=== PATIENT | female | born 1935 | race Caucasian/White ===

== ENCOUNTER 2019-04-10 21:37 | Inpatient (IN) | payer MEDICARE, OTHER ==
[~2019-04-10] VITALS: Ht 165.1 cm; Wt 44.4 kg
--- NOTE | 2019-04-10 21:50 | NUR ---
EKG DONE ON ARRIVAL.
--- NOTE | 2019-04-10 21:51 | NUR ---
Pt arrives via [facility] from home for pt has been sick since Tuesday with diarrhea. Today pt reports feeling weak and dizzy. Pt's lisinopril was increased from 5mg to 10mg on . [facility] reports highes BP of 88/48. 18g to right AC placed. Pt has NS bolus running from [facility]. Pt alert and oriented. Pt very hard of hearing. Pt in gown and placed on full monitors. EKG complete. Pt BP 70/37. Pt daughter, Valencia, at bedside. Pt took percocet at 1800.
[2019-04-10] MEDS ORDERED: ALPR3TAB PO (21:58)
[2019-04-10] MEDS ORDERED: SUMA50TA4 PO (21:58)
[2019-04-10] MEDS ORDERED: OXYC-307 PO (21:58)
[2019-04-10] MEDS ORDERED: LISI10TA2 PO (21:58)
[2019-04-10] MEDS ORDERED: TIZA2CAP PO (21:58)
[2019-04-10 22:25] LABS: RAPID INFLUENZA A Negative (Negative); RAPID INFLUENZA B Negative (Negative)
[2019-04-10] MEDS ORDERED: SODIUM CHLORIDE 0.9% 1,000ML IVBOLUS ONE ×2 (22:30→23:00)
[2019-04-10] MEDS ORDERED: AZITHROMYCIN 500 MG in SODIUM CHLORIDE 0.9% 250 ML IV ONE (22:30)
[2019-04-10] MEDS ORDERED: CEFTRIAXONE PMX 1GM/50ML 50 ML IVPB ONE (22:30)
--- NOTE | 2019-04-10 22:35 | NUR ---
Attempted to walk pt to restroom. Pt reports feeling too weak to walk. Pt return to bed.
[2019-04-10 22:49] LABS: MEAN CORPUSCULAR HEMOGLOBIN 32.4 pg (27.0-34.8); MEAN CORPUSCULAR HGB CONC 33.1 g/dL (32.4-35.8); MEAN CORPUSCULAR VOLUME 97.8 fL (80-100); MEAN PLATELET VOLUME 8.3 fL (7.4-10.4); PLATELET COUNT 281 x10^3/uL (130-400); RED BLOOD COUNT 3.88 x10^6/uL (3.82-5.3); RED CELL DISTRIBUTION WIDTH 13.6 % (9.6-15.2)
[2019-04-10 22:58] LABS: ALANINE AMINOTRANSFERASE 16 U/L (12-78); ALBUMIN 2.5 g/dL (3.4-5.0); ANION GAP 7 mmol/L (5-15); CALCIUM 8.3 mg/dL (8.5-10.1); CHLORIDE 107 mmol/L (98-107); CREATININE 1.44 mg/dL (0.55-1.02)
[2019-04-10 23:02] LABS: ALKALINE PHOSPHATASE 63 U/L (45-117); BILIRUBIN,TOTAL 1.2 mg/dL (0.2-1.0); TOTAL PROTEIN 6.2 g/dL (6.4-8.2); TROPONIN I < 0.015 ng/mL (0.000-0.045)
[2019-04-10 23:17] LABS: MD YES
[2019-04-10] MEDS ORDERED: CEFTRIAXONE PMX 1GM/50ML 50 ML ONE (23:20)
[2019-04-10 23:22] LABS: BAND#(MANUAL) 0.23 x10^3/uL; BANDS%(MANUAL) 1 % (0-7); LYMPH#(MANUAL) 0.91 x10^3/uL (1-3.4); LYMPHS% (MANUAL) 4 % (22-44); MONOS#(MANUAL) 2.04 x10^3/uL (0.3-2.7); MONOS% (MANUAL) 9 % (2-9); SEG#(MANUAL) 19.52 x10^3/uL (1.8-6.8); SEGS% (MANUAL) 86 % (42-75)
[2019-04-10 23:23] LABS: <PLATELET ESTIMATE> ADEQUATE; <PLT MORPHOLOGY> NORMAL PLT MORPH; <RBC MORPHOLOGY> NORMAL
--- NOTE | 2019-04-10 23:25 | NUR ---
Urine collected via sterile straight cath and sent to lab. NS bolus and rocephin started.
[2019-04-10 23:34] LABS: MICROSCOPIC INDICATED
[2019-04-10 23:42] LABS: CULTURE INDICATED? NO
[2019-04-11] VITALS (15 sets, daily range): BP systolic 75–120; BP diastolic 40–59
--- NOTE | 2019-04-11 00:08 | NUR ---
Second PIV antibiotic started. NS bolus continues. Pt BP 101/46. Pt color has improved. Pt given oral swabs. Pt on 1.5L NC.
[2019-04-11] MEDS ORDERED: ONDANSETRON ODT 4 MG PO PRN (00:30)
[2019-04-11] MEDS ORDERED: DIPHENHYDRAMINE 25 MG CAPSULE PO PRN (00:30)
[2019-04-11] MEDS ORDERED: LACTATED RINGERS 1,000 ML IV SCH (00:30)
[2019-04-11] MEDS ORDERED: LIDODERM 5% PATCH TD PRN (00:30)
[2019-04-11] MEDS: CEFTRIAXONE PMX 1GM/50ML 50 ML IV SCH ×2 (00:30→12:48)
[2019-04-11] MEDS ORDERED: DOCUSATE 100 MG CAPSULE PO PRN (00:30)
--- NOTE | 2019-04-11 01:03 | NUR ---
Report given to SUNG Dooley Pt alert and interactive at time of admit.
[2019-04-11] MEDS: HEPARIN 5,000 UNITS/ML, 1ML SQ SCH ×3 (01:26→17:04)
[2019-04-11] MEDS ORDERED: SODIUM CHLORIDE 0.9% 1,000ML IVBOLUS ONE (05:30)
[2019-04-11 06:15] LABS: MEAN CORPUSCULAR HEMOGLOBIN 32.5 pg (27.0-34.8); MEAN CORPUSCULAR VOLUME 98.3 fL (80-100); MEAN PLATELET VOLUME 7.8 fL (7.4-10.4); PLATELET COUNT 275 x10^3/uL (130-400); RED BLOOD COUNT 3.91 x10^6/uL (3.82-5.3); RED CELL DISTRIBUTION WIDTH 13.7 % (9.6-15.2)
[2019-04-11 06:24] LABS: ANION GAP 6 mmol/L (5-15); CALCIUM 7.6 mg/dL (8.5-10.1); CHLORIDE 113 mmol/L (98-107)
[2019-04-11 06:26] LABS: CREATININE 1.01 mg/dL (0.55-1.02)
[2019-04-11 06:57] LABS: MD YES
[2019-04-11 07:00] LABS: BAND#(MANUAL) 0.25 x10^3/uL; BANDS%(MANUAL) 1 % (0-7); LYMPH#(MANUAL) 1.49 x10^3/uL (1-3.4); LYMPHS% (MANUAL) 6 % (22-44); MONOS#(MANUAL) 1.99 x10^3/uL (0.3-2.7); MONOS% (MANUAL) 8 % (2-9); SEG#(MANUAL) 21.17 x10^3/uL (1.8-6.8); SEGS% (MANUAL) 85 % (42-75)
[2019-04-11 07:01] LABS: <PLATELET ESTIMATE> ADEQUATE; <PLT MORPHOLOGY> NORMAL PLT MORPH; <RBC MORPHOLOGY> NORMAL
[2019-04-11] MEDS: ACETAMINOPHEN 325 MG TABLET PO PRN ×2 (08:49→17:44)
[2019-04-11] MEDS ORDERED: SUMA100T4 PO (19:37)
[2019-04-11] MEDS ORDERED: AZITHROMYCIN 500 MG in SODIUM CHLORIDE 0.9% 250 ML IV SCH (23:30)
[2019-04-12] MEDS ORDERED: LACTATED RINGERS 1,000 ML IV SCH (00:30)
[2019-04-12] MEDS: CEFTRIAXONE PMX 1GM/50ML 50 ML IV SCH ×2 (00:45→12:32)
[2019-04-12] MEDS: HEPARIN 5,000 UNITS/ML, 1ML SQ SCH ×3 (02:41→16:52)
[2019-04-12 03:26] VITALS: BP 136/74
[2019-04-12 05:44] LABS: MEAN CORPUSCULAR HEMOGLOBIN 32.2 pg (27.0-34.8); MEAN CORPUSCULAR HGB CONC 33.4 g/dL (32.4-35.8); MEAN CORPUSCULAR VOLUME 96.5 fL (80-100); MEAN PLATELET VOLUME 8.1 fL (7.4-10.4); PLATELET COUNT 298 x10^3/uL (130-400); RED BLOOD COUNT 3.51 x10^6/uL (3.82-5.3); RED CELL DISTRIBUTION WIDTH 13.8 % (9.6-15.2)
[2019-04-12 05:51] LABS: ANION GAP 7 mmol/L (5-15); CALCIUM 8.2 mg/dL (8.5-10.1); CHLORIDE 112 mmol/L (98-107); CREATININE 0.57 mg/dL (0.55-1.02)
[2019-04-12 06:00] LABS: BASOPHILS # (AUTO) 0.08 x10^3/uL (0-0.1); BASOPHILS % (AUTO) 0 % (0-1); EOSINOPHILS # (AUTO) 0.03 x10^3/uL (0-0.4); EOSINOPHILS % (AUTO) 0 % (1-7); LYMPHOCYTES # (AUTO) 1.02 x10^3/uL (1-3.4); LYMPHOCYTES % (AUTO) 5 % (22-44); MD SCAN; MONOCYTES # (AUTO) 1.06 x10^3/uL (0.2-0.8); MONOCYTES % (AUTO) 5 % (2-9); NEUTROPHILS # (AUTO) 18.98 x10^3/uL (1.8-6.8); NEUTROPHILS % (AUTO) 90 % (42-75)
[2019-04-12 08:10] VITALS: BP 157/61
[2019-04-12] MEDS: DOXYCYCLINE 100 MG in DEXTROSE 5% 250 ML IV SCH (12:32)
[2019-04-12 15:50] VITALS: BP 152/61
[2019-04-12 19:28] VITALS: BP 148/73
[2019-04-12] MEDS: OXYcodone/APAP 10/325MG TABLET PO PRN (20:26)
[2019-04-13] MEDS: DOXYCYCLINE 100 MG in DEXTROSE 5% 250 ML IV SCH ×3 (00:23→23:41)
[2019-04-13 01:30] VITALS: BP 147/75
[2019-04-13] MEDS: CEFTRIAXONE PMX 1GM/50ML 50 ML IV SCH ×2 (02:09→15:41)
[2019-04-13] MEDS: HEPARIN 5,000 UNITS/ML, 1ML SQ SCH ×3 (02:26→18:52)
[2019-04-13 04:44] LABS: MEAN CORPUSCULAR HGB CONC 32.6 g/dL (32.4-35.8); MEAN CORPUSCULAR VOLUME 98.1 fL (80-100); MEAN PLATELET VOLUME 7.8 fL (7.4-10.4); PLATELET COUNT 338 x10^3/uL (130-400); RED BLOOD COUNT 3.48 x10^6/uL (3.82-5.3)
[2019-04-13 04:55] LABS: CHLORIDE 109 mmol/L (98-107)
[2019-04-13 05:00] LABS: ANION GAP 5 mmol/L (5-15); CALCIUM 8.4 mg/dL (8.5-10.1); CREATININE 0.54 mg/dL (0.55-1.02)
[2019-04-13 07:25] VITALS: BP 174/67
[2019-04-13 07:47] LABS: BASOPHILS # (AUTO) 0.13 x10^3/uL (0-0.1); BASOPHILS % (AUTO) 1 % (0-1); EOSINOPHILS # (AUTO) 0.05 x10^3/uL (0-0.4); EOSINOPHILS % (AUTO) 0 % (1-7); LYMPHOCYTES # (AUTO) 1.18 x10^3/uL (1-3.4); LYMPHOCYTES % (AUTO) 7 % (22-44); MD SCAN; MONOCYTES # (AUTO) 1.05 x10^3/uL (0.2-0.8); MONOCYTES % (AUTO) 6 % (2-9); NEUTROPHILS # (AUTO) 15.82 x10^3/uL (1.8-6.8); NEUTROPHILS % (AUTO) 87 % (42-75)
[2019-04-13] MEDS: OXYcodone/APAP 10/325MG TABLET PO PRN ×2 (10:47→23:48)
[2019-04-13 12:46] VITALS: BP 138/66
[2019-04-13 19:46] VITALS: BP 168/67
[2019-04-14] MEDS: CEFTRIAXONE PMX 1GM/50ML 50 ML IV SCH ×2 (01:01→14:29)
[2019-04-14 01:06] VITALS: BP 162/65
[2019-04-14] MEDS: HEPARIN 5,000 UNITS/ML, 1ML SQ SCH ×3 (01:55→23:55)
[2019-04-14 05:54] LABS: ANION GAP 4 mmol/L (5-15); CALCIUM 8.4 mg/dL (8.5-10.1); CHLORIDE 109 mmol/L (98-107); CREATININE 0.46 mg/dL (0.55-1.02)
[2019-04-14 06:06] LABS: BASOPHILS # (AUTO) 0.36 x10^3/uL (0-0.1); BASOPHILS % (AUTO) 3 % (0-1); EOSINOPHILS # (AUTO) 0.15 x10^3/uL (0-0.4); EOSINOPHILS % (AUTO) 1 % (1-7); LYMPHOCYTES % (AUTO) 12 % (22-44); MD NO; MEAN CORPUSCULAR HEMOGLOBIN 31.8 pg (27.0-34.8); MEAN CORPUSCULAR HGB CONC 33.1 g/dL (32.4-35.8); MEAN PLATELET VOLUME 8.2 fL (7.4-10.4); MONOCYTES # (AUTO) 1.02 x10^3/uL (0.2-0.8); MONOCYTES % (AUTO) 8 % (2-9); NEUTROPHILS # (AUTO) 9.97 x10^3/uL (1.8-6.8); NEUTROPHILS % (AUTO) 77 % (42-75); PLATELET COUNT 333 x10^3/uL (130-400); RED CELL DISTRIBUTION WIDTH 13.3 % (9.6-15.2)
[2019-04-14 07:30] VITALS: BP 136/64
[2019-04-14] MEDS: DOXYCYCLINE 100 MG in DEXTROSE 5% 250 ML IV SCH ×2 (15:08→23:54)
[2019-04-14 16:01] VITALS: BP 149/55
[2019-04-14 19:05] VITALS: BP 196/70
[2019-04-14 19:50] VITALS: BP 184/83
[2019-04-14] MEDS ORDERED: hydrALAzine 20 MG/ML, 1ML IV PRN (20:30)
[2019-04-14] MEDS ORDERED: hydrALAzine 20 MG/ML, 1ML IV ONE (23:00)
[2019-04-14] MEDS: OXYcodone/APAP 10/325MG TABLET PO PRN (23:52)
[2019-04-15] VITALS (8 sets, daily range): BP systolic 137–174; BP diastolic 58–82
[2019-04-15 00:07] LABS: TROPONIN I < 0.015 ng/mL (0.000-0.045)
[2019-04-15] MEDS ORDERED: NITROGLYCERIN 0.4 MG BOTTLE (25 TABS) SL ONE (00:30)
[2019-04-15] MEDS: CEFTRIAXONE PMX 1GM/50ML 50 ML IV SCH ×2 (02:19→14:15)
[2019-04-15] MEDS ORDERED: hydrALAzine 20 MG/ML, 1ML IV PRN (02:30)
[2019-04-15 06:04] LABS: ANION GAP 8 mmol/L (5-15); CALCIUM 8.6 mg/dL (8.5-10.1); CHLORIDE 106 mmol/L (98-107); CREATININE 0.52 mg/dL (0.55-1.02)
[2019-04-15 06:11] LABS: BASOPHILS # (AUTO) 0.03 x10^3/uL (0-0.1); BASOPHILS % (AUTO) 0 % (0-1); EOSINOPHILS # (AUTO) 0.15 x10^3/uL (0-0.4); EOSINOPHILS % (AUTO) 1 % (1-7); LYMPHOCYTES % (AUTO) 12 % (22-44); MD NO; MEAN CORPUSCULAR HEMOGLOBIN 31.6 pg (27.0-34.8); MEAN CORPUSCULAR HGB CONC 32.6 g/dL (32.4-35.8); MEAN PLATELET VOLUME 7.7 fL (7.4-10.4); MONOCYTES % (AUTO) 8 % (2-9); NEUTROPHILS # (AUTO) 10.17 x10^3/uL (1.8-6.8); NEUTROPHILS % (AUTO) 79 % (42-75); PLATELET COUNT 466 x10^3/uL (130-400); RED BLOOD COUNT 3.77 x10^6/uL (3.82-5.3); RED CELL DISTRIBUTION WIDTH 13.5 % (9.6-15.2)
[2019-04-15] MEDS: HEPARIN 5,000 UNITS/ML, 1ML SQ SCH ×3 (07:30→23:51)
[2019-04-15] MEDS: DOXYCYCLINE 100 MG in DEXTROSE 5% 250 ML IV SCH ×2 (11:43→23:51)
[2019-04-15] MEDS: OXYcodone/APAP 10/325MG TABLET PO PRN (12:36)
[2019-04-15 13:41] LABS: TROPONIN I 0.044 ng/mL (0.000-0.045)
[2019-04-15 18:02] LABS: TROPONIN I 0.042 ng/mL (0.000-0.045)
[2019-04-16] MEDS: OXYcodone/APAP 10/325MG TABLET PO PRN ×3 (00:01→21:32)
[2019-04-16 00:03] VITALS: BP 172/70
[2019-04-16] MEDS: CEFTRIAXONE PMX 1GM/50ML 50 ML IV SCH ×2 (02:04→14:59)
[2019-04-16 04:29] LABS: BASOPHILS # (AUTO) 0.04 x10^3/uL (0-0.1); BASOPHILS % (AUTO) 0 % (0-1); EOSINOPHILS # (AUTO) 0.18 x10^3/uL (0-0.4); EOSINOPHILS % (AUTO) 1 % (1-7); LYMPHOCYTES # (AUTO) 2.13 x10^3/uL (1-3.4); LYMPHOCYTES % (AUTO) 17 % (22-44); MD NO; MEAN CORPUSCULAR HEMOGLOBIN 31.8 pg (27.0-34.8); MEAN CORPUSCULAR HGB CONC 32.8 g/dL (32.4-35.8); MEAN CORPUSCULAR VOLUME 96.9 fL (80-100); MEAN PLATELET VOLUME 7.4 fL (7.4-10.4); MONOCYTES # (AUTO) 0.56 x10^3/uL (0.2-0.8); MONOCYTES % (AUTO) 5 % (2-9); NEUTROPHILS # (AUTO) 9.51 x10^3/uL (1.8-6.8); NEUTROPHILS % (AUTO) 77 % (42-75); PLATELET COUNT 523 x10^3/uL (130-400); RED BLOOD COUNT 3.87 x10^6/uL (3.82-5.3); RED CELL DISTRIBUTION WIDTH 13.4 % (9.6-15.2)
[2019-04-16 04:39] LABS: ANION GAP 8 mmol/L (5-15); CALCIUM 8.7 mg/dL (8.5-10.1); CHLORIDE 102 mmol/L (98-107)
[2019-04-16 04:40] LABS: CREATININE 0.61 mg/dL (0.55-1.02)
[2019-04-16 06:35] VITALS: BP 167/71
[2019-04-16] MEDS: HEPARIN 5,000 UNITS/ML, 1ML SQ SCH ×3 (07:42→23:45)
[2019-04-16] MEDS ORDERED: LISINOPRIL 10 MG TABLET PO SCH (09:00)
[2019-04-16 09:10] VITALS: BP 159/67
[2019-04-16] MEDS: DOXYCYCLINE 100 MG in DEXTROSE 5% 250 ML IV SCH ×2 (11:46→23:45)
[2019-04-16 12:24] LABS: TROPONIN I 0.018 ng/mL (0.000-0.045)
[2019-04-16 13:20] VITALS: BP 166/71
[2019-04-16 18:46] VITALS: BP 138/84
[2019-04-16 21:11] VITALS: BP 146/65
[2019-04-16] MEDS: LISINOPRIL 10 MG TABLET PO SCH (21:14)
[2019-04-17] MEDS: CEFTRIAXONE PMX 1GM/50ML 50 ML IV SCH (01:58)
[2019-04-17] MEDS: OXYcodone/APAP 10/325MG TABLET PO PRN (02:06)
[2019-04-17 02:22] VITALS: BP 123/66
[2019-04-17 06:40] VITALS: BP 157/65
[2019-04-17] MEDS: LISINOPRIL 10 MG TABLET PO SCH (08:38)
[2019-04-17] MEDS: HEPARIN 5,000 UNITS/ML, 1ML SQ SCH (08:38)
[2019-04-17] MEDS ORDERED: LISI-167 PO (11:12)
[2019-04-17] MEDS ORDERED: CEFTRIAXONE PMX 1GM/50ML 50 ML IV SCH (12:00)
[2019-04-17 12:35] VITALS: BP 168/76
== END 2019-04-17 14:20 | disposition home or self-care (01) | DRG 871 ==
LOC: ED 23:24 → EDIP 23:49 → 5SO 04-11 00:57 → 3N 04-14 11:38 → 5SO 04-15 14:44 → DCLOUNGE 04-17 14:12
PROVIDERS: ADMIT Internal Medicine; ATTEND Hospitalist
PROC: 0T9B70Z Drainage of Bladder with Drainage Device, Via Natural or Artificial Opening (ICD-10-PCS; principal; 2019-04-10)
DX: A41.9 Sepsis, unspecified organism (principal); R65.21 Severe sepsis with septic shock; J96.21 Acute and chronic respiratory failure with hypoxia; N17.0 Acute kidney failure with tubular necrosis; E43 Unspecified severe protein-calorie malnutrition; J15.4 Pneumonia due to other streptococci; Z68.1 Body mass index [BMI] 19.9 or less, adult; J44.0 Chronic obstructive pulmonary disease with (acute) lower respiratory infection; J44.1 Chronic obstructive pulmonary disease with (acute) exacerbation; F17.210 Nicotine dependence, cigarettes, uncomplicated; I10 Essential (primary) hypertension; I16.0 Hypertensive urgency; Z79.899 Other long term (current) drug therapy; Z99.81 Dependence on supplemental oxygen
CPT/HCPCS: 36415; 71045; 80048; 80053; 81001; 82962; 83605; 83880; 84145; 84443; 84484; 85025; 87040; 87070; 87077; 87184; 87205; 87400; 93005; 93306; 96365; 96375; G0378; J0456; J0696; J1644; J7060; J0360; J7030; J7050; J7120